=== PATIENT | male | born 1955 | race Caucasian/White ===

== ENCOUNTER 2023-05-06 08:47 | Outpatient (CLI) | payer MEDICARE | END 2023-05-06 08:48 | disposition home or self-care (01) | LOC: BURCT 08:47 | PROVIDERS: ATTEND Internal Medicine Hematology & Oncology | DX: C25.2 Malignant neoplasm of tail of pancreas (principal); C78.7 Secondary malignant neoplasm of liver and intrahepatic bile duct; R97.8 Other abnormal tumor markers; R91.8 Other nonspecific abnormal finding of lung field; C79.51 Secondary malignant neoplasm of bone | CPT/HCPCS: 71260; 74177 ==